=== PATIENT | male | born 1970 | race Caucasian/White ===

== ENCOUNTER 2017-05-16 20:51 | Inpatient (IN) | payer OTHER ==
[2017-05-16 21:45] VITALS: BMI 24.3
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
[2017-05-16] MEDS ORDERED: ACETAMINOPHEN 325 MG TABLET (FP) PO PRN (22:03)
[2017-05-16] MEDS ORDERED: guaiFENesin/D-METHORPHAN HB 10 ML UNIT-DOSE CUPS PO PRN (22:03)
[2017-05-16] MEDS ORDERED: chlordiazePOXIDE HCL 25 MG CAPSULE PO PRN (22:03)
[2017-05-16] MEDS ORDERED: LOPERAMIDE HCL 2 MG CAPSULE PO PRN (22:03)
[2017-05-16] MEDS ORDERED: hydrOXYzine PAMOATE 50 MG CAPSULE (FP) PO PRN (22:03)
[2017-05-16] MEDS ORDERED: MAGNESIUM CITRATE 300 ML BOTTLE PO PRN (22:03)
[2017-05-16] MEDS ORDERED: MAG HYDROX/AL HYDROX/SIMETH 30 ML UNIT-DOSE CUP PO PRN (22:03)
[2017-05-16] MEDS ORDERED: P-EPHED 60MG/TRIPROLIDI 2.5MG TABLET PO PRN (22:03)
[2017-05-16] MEDS ORDERED: MENTHOL/PHENOL 1 EACH UD MM PRN (22:03)
[2017-05-16] MEDS ORDERED: chlordiazePOXIDE HCL 25 MG CAPSULE PO ONE (22:03)
[2017-05-16] MEDS ORDERED: IBUPROFEN 400 MG TABLET (FP) PO PRN (22:03)
[2017-05-16] MEDS ORDERED: MAGNESIUM HYDROX 2400MG/30ML ORAL SUSPENSION 30 ML CUP PO PRN (22:03)
[2017-05-16] MEDS ORDERED: levETIRAcetam 500 MG TABLET (FP) PO ONE (22:18)
[2017-05-16] MEDS: METOPROLOL TARTRATE 50 MG TABLET (FP) PO SCH ×2 (23:56)
[2017-05-16] MEDS: chlordiazePOXIDE HCL 25 MG CAPSULE PO SCH (23:57)
[2017-05-17] MEDS: chlordiazePOXIDE HCL 25 MG CAPSULE PO SCH ×4 (06:00→22:09)
[2017-05-17 10:00] LABS: MCH 34.7 pg (25.7-33.7); MCHC 34.1 g/dl (32.0-35.9); MEAN CELL VOLUME 101.6 fl (80-96); MEAN PLT VOLUME 8.8 fl (7.5-11.1); PLATELET COUNT 137 K/MM3 (134-434); RDW 12.8 % (11.9-15.9); WHITE BLOOD COUNT 4.7 K/mm3 (4.0-10.0)
[2017-05-17] MEDS: PRENATAL VITAMINS W/ FOLIC ACID TABLET (FP) PO SCH (10:11)
[2017-05-17] MEDS: METOPROLOL TARTRATE 50 MG TABLET (FP) PO SCH ×2 (10:11→22:09)
[2017-05-17] MEDS: levETIRAcetam 500 MG TABLET (FP) PO SCH ×2 (10:11→22:09)
[2017-05-17] MEDS: LISINOPRIL 10 MG TABLET (FP) PO SCH (10:11)
[2017-05-17] MEDS: ARTIFICIAL TEARS (POLYVINYL ALCOHOL 1.4%) OPTH DROPS OU SCH ×4 (10:30→22:09)
[2017-05-17 10:33] LABS: ALBUMIN 3.5 g/dl (3.4-5.0); ANION GAP 10 (8-16); CALCIUM 9.2 mg/dL (8.5-10.1); CO2 30 mmol/L (21-32); GLUCOSE,RANDOM 88 mg/dL (74-106)
[2017-05-17 10:37] LABS: ALK PHOS 73 U/L (45-117); BILIRUBIN,TOTAL 0.9 mg/dL (0.2-1.0); CREATININE 0.8 mg/dL (0.7-1.3); SGOT/AST 36 U/L (15-37); SGPT/ALT 40 U/L (12-78); TOT PROT 7.7 g/dl (6.4-8.2)
--- NOTE | 2017-05-17 10:53 | PN ---
[facility] CIWA - CIWA Score Nausea/Vomitin-No Nausea/No Vomiting Muscle Tremors: 4-Moderate,w/Arms Extend Anxiety: 4-Mod. Anxious/Guarded Agitation: 4-Moderately Restless Paroxysmal Sweats: 1-Minimal Palms Moist Orientation: 0-Oriented Tacttile Disturbances: 3-Moderate Itch/Numb/Burn Auditory Disturbances: 0-None Visual Disturbances: 0-None Headache: 0-None Present CIWA-Ar Total Score: 16 BHS Progress Note (SOAP) Subjective: HEADACHE, NASAL CONGESTION, ANXIETY,SWEATS,INTERMITTENT SLEEP. Objective: 05/17/17 10:43 Vital Signs Temperature 97.8 F 05/17/17 10:10 Pulse Rate 86 05/17/17 10:10 Respiratory Rate 18 05/17/17 10:10 Blood Pressure 131/87 05/17/17 10:10 O2 Sat by Pulse Oximetry (%) Laboratory Last Values WBC 4.7 K/mm3 (4.0-10.0) 05/17/17 07:00 RBC 4.32 M/mm3 (4.00-5.60) 05/17/17 07:00 Hgb 15.0 GM/dL (11.7-16.9) 05/17/17 07:00 Hct 43.9 % (35.4-49) 05/17/17 07:00 MCV 101.6 fl (80-96) H 05/17/17 07:00 MCH 34.7 pg (25.7-33.7) H 05/17/17 07:00 MCHC 34.1 g/dl (32.0-35.9) 05/17/17 07:00 RDW 12.8 % (11.9-15.9) 05/17/17 07:00 Plt Count 137 K/MM3 (134-434) 05/17/17 07:00 MPV 8.8 fl (7.5-11.1) 05/17/17 07:00 OTHER LAB RESULTS PENDING Assessment: 05/17/17 10:53 WITHDRAWAL SX Plan: CONTINUE DETOX ACTIFED PRN DIRECTED.
--- NOTE | 2017-05-17 12:42 | EKG ---
Test Reason : Blood Pressure : / mmHG Vent. Rate : 054 BPM Atrial Rate : 054 BPM P-R Int : 162 ms QRS Dur : 100 ms QT Int : 394 ms P-R-T Axes : 038 022 022 degrees QTc Int : 373 ms SINUS BRADYCARDIA OTHERWISE NORMAL ECG NO PREVIOUS ECGS AVAILABLE Confirmed by NELLIE BARBOZA MD ([id number]) on 05/17/2017 12:42:30 PM Referred By: Confirmed By:NELLIE BARBOZA MD
--- NOTE | 2017-05-17 13:03 | CONSULT ---
[facility] Psychiatric Consult - Data Date of interview: 05/17/17 Admission source: [facility] Identifying data: First admission to [facility] for this 47 y/o [place]born male seeking detox treatment on for alcohol dependence.Patient is single ,a father of two,domiciled,unemployed (disabled) and supported on welfare. Substance Abuse History: Confirmed by patient in this interview. Smoking Cessation. Smoking history: Never smoked. Have you smoked in the past 12 months: No. Hx Chewing Tobacco Use: No. Initiated information on smoking cessation: No. - Substance & Tx. History. Hx Alcohol Use: Yes. Hx Substance Use: No. Substance Use Type: Alcohol. Hx Substance Use Treatment: No (1st detox probational). - Substances Abused. Alcohol. Route: Oral. Frequency : 3-6 times per week (24). Amount used: 24ozx4. Age of first use: 21. Date of Last Use: 05/16/17 Medical History: Seizure disorder,hypertension and hypercholesterolemia. Psychiatric History: Patient denies. Physical/Sexual Abuse/Trauma History: Patient denies. Additional Comment: Drug Screen is negative. Mental Status Exam - Mental Status Exam Alert and Oriented to: Time, Place, Person Cognitive Function: Good Patient Appearance: Well Groomed Mood: Hopeful, Euthymic Affect: Appropriate, Normal Range Patient Behavior: Fatigued, Appropriate, Cooperative Speech Pattern: Clear (bilingual) Voice Loudness: Normal Thought Process: Intact, Goal Oriented Thought Disorder: Not Present Hallucinations: Denies Suicidal Ideation: Denies Homicidal Ideation: Denies Insight/Judgement: Poor Sleep: Well Appetite: Good Muscle strength/Tone: Normal Gait/Station: Normal Psychiatric Findings - Problem List ([place] 1, 2,3) (1) Alcohol dependence with uncomplicated withdrawal Current Visit: Yes Status: Acute (2) Hyperlipidemia Current Visit: Yes Status: Chronic Qualifiers: Hyperlipidemia type: pure hypercholesterolemia Qualified Code(s): E78.00 - Pure hypercholesterolemia, unspecified; E78.0 - Pure hypercholesterolemia (3) Hypertension Current Visit: Yes Status: Chronic Qualifiers: Hypertension type: essential hypertension Qualified Code(s): I10 - Essential (primary) hypertension (4) Seizure Current Visit: Yes Status: Chronic - Initial Treatment Plan Initial Treatment Plan: Psychoeducation.Detoxification.Observation.
[2017-05-17] MEDS: ATORVASTATIN CA 20 MG TABLET (FP) PO SCH (22:09)
[2017-05-17] MEDS: diphenhydrAMINE HCL 50 MG CAPSULE PO PRN (22:09)
[2017-05-17] MEDS: THIAMINE HCL 100 MG TABLET (FP) PO SCH (22:12)
[2017-05-18] MEDS: chlordiazePOXIDE HCL 25 MG CAPSULE PO SCH ×3 (05:49→17:21)
[2017-05-18] MEDS: ARTIFICIAL TEARS (POLYVINYL ALCOHOL 1.4%) OPTH DROPS OU SCH ×4 (10:10→22:09)
[2017-05-18] MEDS: METOPROLOL TARTRATE 50 MG TABLET (FP) PO SCH ×2 (10:11→22:09)
[2017-05-18] MEDS: LISINOPRIL 10 MG TABLET (FP) PO SCH (10:11)
[2017-05-18] MEDS: PRENATAL VITAMINS W/ FOLIC ACID TABLET (FP) PO SCH (10:11)
[2017-05-18] MEDS: levETIRAcetam 500 MG TABLET (FP) PO SCH ×2 (10:11→22:10)
--- NOTE | 2017-05-18 10:34 | PN ---
[facility] CIWA - CIWA Score Nausea/Vomitin-No Nausea/No Vomiting Muscle Tremors: 4-Moderate,w/Arms Extend Anxiety: 4-Mod. Anxious/Guarded Agitation: 4-Moderately Restless Paroxysmal Sweats: 1-Minimal Palms Moist Orientation: 0-Oriented Tacttile Disturbances: 3-Moderate Itch/Numb/Burn Auditory Disturbances: 0-None Visual Disturbances: 0-None Headache: 0-None Present CIWA-Ar Total Score: 16 S Progress Note (SOAP) Subjective: ANXIETY,TREMORS,HEADACHE,DENIES DIZZINESS. Objective: 05/18/17 10:32 Vital Signs Temperature 96.4 F L 05/18/17 09:22 Pulse Rate 95 H 05/18/17 09:22 Respiratory Rate 20 05/18/17 09:22 Blood Pressure 135/96 05/18/17 09:22 O2 Sat by Pulse Oximetry (%) Laboratory Last Values WBC 4.7 K/mm3 (4.0-10.0) 05/17/17 07:00 RBC 4.32 M/mm3 (4.00-5.60) 05/17/17 07:00 Hgb 15.0 GM/dL (11.7-16.9) 05/17/17 07:00 Hct 43.9 % (35.4-49) 05/17/17 07:00 MCV 101.6 fl (80-96) H 05/17/17 07:00 MCH 34.7 pg (25.7-33.7) H 05/17/17 07:00 MCHC 34.1 g/dl (32.0-35.9) 05/17/17 07:00 RDW 12.8 % (11.9-15.9) 05/17/17 07:00 Plt Count 137 K/MM3 (134-434) 05/17/17 07:00 MPV 8.8 fl (7.5-11.1) 05/17/17 07:00 Sodium 138 mmol/L (136-145) 05/17/17 07:00 Potassium 4.0 mmol/L (3.5-5.1) 05/17/17 07:00 Chloride 98 mmol/L (98-107) 05/17/17 07:00 Carbon Dioxide 30 mmol/L (21-32) 05/17/17 07:00 Anion Gap 10 (8-16) 05/17/17 07:00 BUN 7 mg/dL (7-18) 05/17/17 07:00 Creatinine 0.8 mg/dL (0.7-1.3) 05/17/17 07:00 Creat Clearance w eGFR > 60 (>60) 05/17/17 07:00 Random Glucose 88 mg/dL (74-106) 05/17/17 07:00 Calcium 9.2 mg/dL (8.5-10.1) 05/17/17 07:00 Total Bilirubin 0.9 mg/dL (0.2-1.0) 05/17/17 07:00 AST 36 U/L (15-37) 05/17/17 07:00 ALT 40 U/L (12-78) 05/17/17 07:00 Alkaline Phosphatase 73 U/L (45-117) 05/17/17 07:00 Total Protein 7.7 g/dl (6.4-8.2) 05/17/17 07:00 Albumin 3.5 g/dl (3.4-5.0) 05/17/17 07:00 RPR Titer Nonreactive (NONREACTIVE) 05/17/17 07:00 Hepatitis C Antibody <0.1 s/co ratio (0.0-0.9) 05/16/17 07:00 UA PENDING Assessment: 05/18/17 10:33 WITHDRAWAL SX Plan: CONTINUE DETOX TYLENOL PRN FOR HEADACHE
[2017-05-18 16:13] LABS: URINE APPEARANCE SLCLOUDY; URINE BILIRUBIN NEGATIVE (NEGATIVE); URINE BLOOD NEGATIVE (NEGATIVE); URINE COLOR AMBER; URINE GLUCOSE (UA) NEGATIVE (NEGATIVE); URINE KETONE NEGATIVE (NEGATIVE); URINE LEUK ESTERASE TRACE (NEGATIVE); URINE NITRITE NEGATIVE (NEGATIVE); URINE UROBILINOGEN NEGATIVE mg/dL (0.2-1.0)
[2017-05-18 16:22] LABS: URINE PROTEIN 1+ (NEGATIVE)
[2017-05-18 16:46] LABS: URINE MUCUS FEW; URINE RBC <1 /hpf (0-3); URINE WBC 5 /hpf (3-5)
[2017-05-18] MEDS: THIAMINE HCL 100 MG TABLET (FP) PO SCH (22:08)
[2017-05-18] MEDS: chlordiazePOXIDE 5 MG CAPSULE PO SCH (22:09)
[2017-05-18] MEDS: diphenhydrAMINE HCL 50 MG CAPSULE PO PRN (22:09)
[2017-05-18] MEDS: ATORVASTATIN CA 20 MG TABLET (FP) PO SCH (22:10)
[2017-05-19] MEDS: chlordiazePOXIDE 5 MG CAPSULE PO SCH ×3 (05:23→17:24)
[2017-05-19] MEDS: LISINOPRIL 10 MG TABLET (FP) PO SCH (10:16)
[2017-05-19] MEDS: levETIRAcetam 500 MG TABLET (FP) PO SCH ×2 (10:16→22:28)
[2017-05-19] MEDS: PRENATAL VITAMINS W/ FOLIC ACID TABLET (FP) PO SCH (10:16)
[2017-05-19] MEDS: ARTIFICIAL TEARS (POLYVINYL ALCOHOL 1.4%) OPTH DROPS OU SCH ×4 (10:16→22:28)
[2017-05-19] MEDS: METOPROLOL TARTRATE 50 MG TABLET (FP) PO SCH ×2 (10:16→22:29)
--- NOTE | 2017-05-19 10:39 | PN ---
S Progress Note (SOAP) Subjective: DECREASED ANXIETY,TREMORS,INTERMITTENT SLEEP Objective: 05/19/17 10:35 Vital Signs Temperature 96.9 F L 05/19/17 09:47 Pulse Rate 81 05/19/17 09:47 Respiratory Rate 18 05/19/17 09:47 Blood Pressure 128/82 05/19/17 09:47 O2 Sat by Pulse Oximetry (%) Laboratory Last Values WBC 4.7 K/mm3 (4.0-10.0) 05/17/17 07:00 RBC 4.32 M/mm3 (4.00-5.60) 05/17/17 07:00 Hgb 15.0 GM/dL (11.7-16.9) 05/17/17 07:00 Hct 43.9 % (35.4-49) 05/17/17 07:00 MCV 101.6 fl (80-96) H 05/17/17 07:00 MCH 34.7 pg (25.7-33.7) H 05/17/17 07:00 MCHC 34.1 g/dl (32.0-35.9) 05/17/17 07:00 RDW 12.8 % (11.9-15.9) 05/17/17 07:00 Plt Count 137 K/MM3 (134-434) 05/17/17 07:00 MPV 8.8 fl (7.5-11.1) 05/17/17 07:00 Sodium 138 mmol/L (136-145) 05/17/17 07:00 Potassium 4.0 mmol/L (3.5-5.1) 05/17/17 07:00 Chloride 98 mmol/L (98-107) 05/17/17 07:00 Carbon Dioxide 30 mmol/L (21-32) 05/17/17 07:00 Anion Gap 10 (8-16) 05/17/17 07:00 BUN 7 mg/dL (7-18) 05/17/17 07:00 Creatinine 0.8 mg/dL (0.7-1.3) 05/17/17 07:00 Creat Clearance w eGFR > 60 (>60) 05/17/17 07:00 Random Glucose 88 mg/dL (74-106) 05/17/17 07:00 Calcium 9.2 mg/dL (8.5-10.1) 05/17/17 07:00 Total Bilirubin 0.9 mg/dL (0.2-1.0) 05/17/17 07:00 AST 36 U/L (15-37) 05/17/17 07:00 ALT 40 U/L (12-78) 05/17/17 07:00 Alkaline Phosphatase 73 U/L (45-117) 05/17/17 07:00 Total Protein 7.7 g/dl (6.4-8.2) 05/17/17 07:00 Albumin 3.5 g/dl (3.4-5.0) 05/17/17 07:00 Urine Color Scarlett 05/18/17 11:20 Urine Appearance Slcloudy 05/18/17 11:20 Urine pH 6.0 (5.0-8.0) 05/18/17 11:20 Urine Protein 1+ (NEGATIVE) H 05/18/17 11:20 Urine Glucose (UA) Negative (NEGATIVE) 05/18/17 11:20 Urine Ketones Negative (NEGATIVE) 05/18/17 11:20 Urine Blood Negative (NEGATIVE) 05/18/17 11:20 Urine Nitrite Negative (NEGATIVE) 05/18/17 11:20 Urine Bilirubin Negative (NEGATIVE) 05/18/17 11:20 Urine Urobilinogen Negative mg/dL (0.2-1.0) 05/18/17 11:20 Ur Leukocyte Esterase Trace (NEGATIVE) 05/18/17 11:20 Urine RBC <1 /hpf (0-3) 05/18/17 11:20 Urine WBC 5 /hpf (3-5) 05/18/17 11:20 Urine Mucus Few 05/18/17 11:20 RPR Titer Nonreactive (NONREACTIVE) 05/17/17 07:00 Hepatitis C Antibody <0.1 s/co ratio (0.0-0.9) 05/16/17 07:00 Assessment: 05/19/17 10:39 WITHDRAWAL SX Plan: CONTINUE DETOX
[2017-05-19] MEDS: THIAMINE HCL 100 MG TABLET (FP) PO SCH (22:29)
[2017-05-19] MEDS: chlordiazePOXIDE HCL 10 MG CAPSULE PO SCH (22:29)
[2017-05-19] MEDS: ATORVASTATIN CA 20 MG TABLET (FP) PO SCH (22:29)
[2017-05-19] MEDS: diphenhydrAMINE HCL 50 MG CAPSULE PO PRN (22:29)
[2017-05-20] MEDS: chlordiazePOXIDE HCL 10 MG CAPSULE PO SCH (05:27)
[2017-05-20 06:38] VITALS: BP 122/79; PULSE 85; TEMP 96.6
--- NOTE | 2017-05-20 20:24 | DS ---
[facility] Detox Discharge Summary Admission Date: 05/16/17 Discharge Date: 05/20/17 - History Present History: Alcohol Dependence Additional Comments: PATIENT ELECTING TO GO HOME. PATIENT ADVISED TO CONSIDER LOCAL 12-STEP / AA OUTPATIENT PROGRAMS FOR FOLLOW-UP AFTERCARE. PATIENT WAS DISCHARGED FROM UNIT IN STABLE MEDICAL CONDITION. Pertinent Past History: HTN, Hyperlipidemia, History of Seizures, Dry Eyes (bilateral). - Physical Exam Results Vital Signs: Vital Signs Temperature 96.6 F L 05/20/17 06:38 Pulse Rate 85 05/20/17 06:38 Respiratory Rate 18 05/20/17 06:38 Blood Pressure 122/79 05/20/17 06:38 O2 Sat by Pulse Oximetry (%) Pertinent Admission Physical Exam Findings: WITHDRAWAL SYMPTOMS. Laboratory Tests 05/16/17 05/17/17 05/17/17 07:00 07:00 07:00 WBC 4.7 RBC 4.32 Hgb 15.0 Hct 43.9 MCV 101.6 H MCH 34.7 H MCHC 34.1 RDW 12.8 Plt Count 137 MPV 8.8 Sodium 138 Potassium 4.0 Chloride 98 Carbon Dioxide 30 Anion Gap 10 BUN 7 Creatinine 0.8 Creat Clearance w eGFR > 60 Random Glucose 88 Calcium 9.2 Total Bilirubin 0.9 AST 36 ALT 40 Alkaline Phosphatase 73 Total Protein 7.7 Albumin 3.5 Urine Color Urine Appearance Urine pH Urine Protein Urine Glucose (UA) Urine Ketones Urine Blood Urine Nitrite Urine Bilirubin Urine Urobilinogen Ur Leukocyte Esterase Urine RBC Urine WBC Urine Mucus RPR Titer Hepatitis C Antibody <0.1 05/17/17 05/18/17 07:00 11:20 WBC RBC Hgb Hct MCV MCH MCHC RDW Plt Count MPV Sodium Potassium Chloride Carbon Dioxide Anion Gap BUN Creatinine Creat Clearance w eGFR Random Glucose Calcium Total Bilirubin AST ALT Alkaline Phosphatase Total Protein Albumin Urine Color Scarlett Urine Appearance Slcloudy Urine pH 6.0 Urine Protein 1+ H Urine Glucose (UA) Negative Urine Ketones Negative Urine Blood Negative Urine Nitrite Negative Urine Bilirubin Negative Urine Urobilinogen Negative Ur Leukocyte Esterase Trace Urine RBC <1 Urine WBC 5 Urine Mucus Few RPR Titer Nonreactive Hepatitis C Antibody LABS NOTED. - Treatment Hospital Course: Detox Protocol Followed, Detoxed Safely, Responded well, Discharged Condition Good Patient has Accepted a Rehab Referral to: PT GOING HOME. ADVISED TO CONSIDER LOCAL 12-STEP/AA PROGRAMS FOR AFTERCARE. - Medication Discharge Medications: Ambulatory Orders Atorvastatin Ca [Lipitor] 20 mg PO HS 05/16/17 Levetiracetam [Levetiracetam ER] 1,000 mg PO BID 05/16/17 Lisinopril [Prinivil -] 10 mg PO DAILY 05/16/17 Metoprolol Succinate [Toprol Xl -] 25 mg PO DAILY 05/16/17 - Diagnosis (1) Alcohol dependence with uncomplicated withdrawal Status: Acute (2) Weight loss Status: Acute (3) Dry eyes, bilateral Status: Chronic (4) Hyperlipidemia Status: Chronic Qualifiers: Hyperlipidemia type: pure hypercholesterolemia Qualified Code(s): E78.00 - Pure hypercholesterolemia, unspecified; E78.0 - Pure hypercholesterolemia (5) Hypertension Status: Chronic Qualifiers: Hypertension type: essential hypertension Qualified Code(s): I10 - Essential (primary) hypertension (6) Seizure Status: Chronic - AMA Did Patient Leave Against Medical Advice: No
== END 2017-05-20 07:15 | disposition home or self-care (01) | DRG 775 ==
LOC: YASAS 20:51 → Y3N 22:29
PROVIDERS: ADMIT Internal Medicine Addiction Medicine; ATTEND Internal Medicine Addiction Medicine
PROC: HZ2ZZZZ Detoxification Services for Substance Abuse Treatment (ICD-10-PCS; principal; 2017-05-16)
DX: F10.230 Alcohol dependence with withdrawal, uncomplicated (principal); I10 Essential (primary) hypertension; E78.5 Hyperlipidemia, unspecified; H04.123 Dry eye syndrome of bilateral lacrimal glands; G40.909 Epilepsy, unspecified, not intractable, without status epilepticus; Z87.898 Personal history of other specified conditions
CPT/HCPCS: 36415; 80053; 81003; 81015; 85027; 86593; 86803; 93005; 93010